=== PATIENT | female | born 1955 | race Caucasian/White ===

== ENCOUNTER 2019-10-01 18:54 | Emergency (ER) | payer MEDICARE, BC ==
[2019-10-01] MEDS ORDERED: Cephalexin 500 MG Cap PO ONE (18:55)
[2019-10-01] MEDS ORDERED: Meclizine 12.5 MG Tab PO ONE ×2 (18:55→19:34)
--- NOTE | 2019-10-01 19:39 | EDM.PDOC ---
ED HPI GENERAL MEDICAL PROBLEM - General Chief Complaint: General Stated Complaint: Dizziness Time Seen by Provider: 10/01/19 19:20 Source of Information: Reports: Patient History Limitations: Reports: No Limitations - History of Present Illness INITIAL COMMENTS - FREE TEXT/NARRATIVE: Patient to the emergency department complaining of severe dizziness with nausea and vomiting. The patient advises that she did have some dizziness last night and that resolved on its own and then it came back today and is much more worse. The patient denies any change in vision, she denies any ear, nose, throat symptoms she denies any sinus pain or pressure she denies any unusual neck, back pain or stiffness she denies any chest pain pressure heaviness she denies any palpitations irregular heartbeat she denies any calf pain redness or swelling she denies any abdominal pain has had nausea vomiting no diarrhea she has had no constipation she denies any fever chills she denies any sick contacts and no recent travel Onset: Gradual (Symptoms off and on since yesterday) Duration: Day(s): (2 days) Location: Reports: Head Quality: Reports: Other (Dizziness) Severity: Moderate Improves with: Reports: None Worsens with: Reports: Other (Unsure exactly what exacerbates the symptoms she denies any ataxia) Associated Symptoms: Reports: Nausea/Vomiting. Denies: Confusion, Chest Pain, Cough, Fever/Chills, Headaches, Seizure, Shortness of Breath, Syncope, Weakness Treatments GAUGER CHIEF: Reports: Other (see below) (none) - Related Data Allergies Allergy/AdvReac Type Severity Reaction Status Date / Time niacin Allergy Rash Verified 10/01/19 19:09 Home Meds: Home Meds Cyclobenzaprine HCl 10 mg DAILY 10/01/19 [History] Meclizine [Antivert] 25 mg PO TID 10 Days #30 tab 10/01/19 [Rx] Pravastatin Sodium [Pravastatin (Pravachol)] 40 mg DAILY 10/01/19 [History] cephALEXin [Keflex] 500 mg PO Q8H 10 Days #30 cap 10/01/19 [Rx] Past Medical History Cardiovascular History: Reports: High Cholesterol Social & Family History - Tobacco Use Smoking Status *Q: Never Smoker Second Hand Smoke Exposure: No ED ROS GENERAL - Review of Systems Review Of Systems: See Below Constitutional: Reports: No Symptoms. Denies: Fever, Chills, Weakness HEENT: Reports: No Symptoms. Denies: Ear Pain, Nose Pain, Throat Pain Respiratory: Reports: No Symptoms. Denies: Shortness of Breath, Cough Cardiovascular: Reports: No Symptoms. Denies: Chest Pain, Claudication, Edema, Palpitations, Syncope Endocrine: Reports: No Symptoms GI/Abdominal: Reports: Nausea, Vomiting. Denies: Abdominal Pain, Diarrhea : Reports: No Symptoms Musculoskeletal: Reports: No Symptoms. Denies: Neck Pain, Back Pain Skin: Reports: No Symptoms. Denies: Bruising, Rash, Erythema Neurological: Reports: Dizziness. Denies: Confusion, Headache, Seizure, Syncope , Trouble Speaking, Difficulty Walking, Weakness, Change in Speech, Gait Disturbance Psychiatric: Reports: No Symptoms ED EXAM, GENERAL - Physical Exam Exam: See Below Exam Limited By: No Limitations General Appearance: Alert, WD/WN, No Apparent Distress Eye Exam: Bilateral Eye: EOMI Ears: Normal External Exam, Normal Canal, Hearing Grossly Normal, Normal TMs Ear Exam: Bilateral Ear: TM normal Nose: Normal Inspection, Normal Mucosa. No: Nasal Tenderness, Nasal Drainage Throat/Mouth: Normal Inspection, Normal Lips, Normal Oropharynx, Normal Voice, No Airway Compromise Head: Atraumatic, Normocephalic Neck: Normal Inspection, Supple, Non-Tender, Full Range of Motion Respiratory/Chest: No Respiratory Distress, Lungs Clear, Normal Breath Sounds, Chest Non-Tender Cardiovascular: Normal Peripheral Pulses, Regular Rate, Rhythm, No Edema, No Murmur Peripheral Pulses: 2+: Radial (L), Radial (R), Posterior Tibial (L), Posterior Tibial (R) GI/Abdominal: Soft, Non-Tender Back Exam: Normal Inspection, Full Range of Motion Extremities: Normal Inspection, Normal Range of Motion, Non-Tender, No Pedal Edema, Normal Capillary Refill. No: Mar's Sign Neurological: Alert, Oriented, CN II-XII Intact, Normal Cognition, Normal Gait, No Motor/Sensory Deficits, Other (No palmar drift, normal [id number], EOMI, the nurse advised her gait was steady) Psychiatric: Normal Affect, Normal Mood Skin Exam: Warm, Dry, Intact, Normal Color EKG INTERPRETATION EKG Date: 10/01/19 Time: 20:08 Rhythm: NSR [place]: Normal P-Wave: Present QRS: Normal ST-T: Other (Nonspecific changes) QT: Normal EKG Interpretation Comments: Twelve-lead EKG shows an underlying sinus rhythm with a ventricular rate of 70 there is some nonspecific ST changes however there does not appear to be any acute injury or ischemia noted at this point. Course - Vital Signs Text/Narrative:: 2053 the patient has been evaluated in the emergency department CBC, general chemistries, troponin, magnesium are all essentially negative urinalysis does show urinary tract infection, see all the labs for complete details. Twelve- lead EKG shows an underlying sinus rhythm with some nonspecific ST changes. The patient was given Antivert [address] x[address] dose. CT the brain is still pending radiology reading. Once the CT reading is complete a disposition will be made 2118 CT brain read as neg for acute pathology, see report for details, pt did have good results with antivert, will be dc with antivert and will be started on keflex for her UTI, will increase fluids and f/u with pcp this week Last Recorded V/S: Last Vital Signs Temp 36.1 C 10/01/19 19:27 Pulse 88 10/01/19 19:27 Resp 20 10/01/19 19:27 BP 151/96 H 10/01/19 19:27 Pulse Ox 100 10/01/19 19:27 - Orders/Labs/Meds Orders: Active Orders 24 hr Category Date Time Status Head wo Cont [CT] Stat Exams 10/01/19 19:33 Taken CULTURE URINE [RM] Stat Lab 10/01/19 19:45 Received EKG 12 Lead [EK] Stat Ther 10/01/19 19:35 Ordered Labs: Laboratory Tests 10/01/19 10/01/19 10/01/19 Range/Units 19:45 19:55 19:55 WBC 7.8 (5.0-10.0) 10^3/uL RBC 4.93 (4.00-5.50) 10^6/uL Hgb 14.3 (12.0-16.0) g/dL Hct 43.4 (37.0-47.0) % MCV 88.0 (82.0-94.0) fL MCH 29.0 (27.0-32.0) pg MCHC 32.9 L (33.0-38.0) g/dL RDW Coeff of Malina 13.4 (11.0-15.0) % Plt Count 235 (150-400) 10^3/uL Neut % (Auto) 83.6 (35-85) % Lymph % (Auto) 11.3 (10-55) % [place] % (Auto) 4.7 (0-16) % Eos % (Auto) 0.1 (0-5) % Baso % (Auto) 0.3 (0-3) % Neut # (Auto) 6.51 (1.80-7.00) 10^3/uL Lymph # (Auto) 0.88 L (1.00-4.80) 10^3/uL [place] # (Auto) 0.37 (0.00-0.80) 10^3/uL Eos # (Auto) 0.01 (0.00-0.45) 10^3/uL Baso # (Auto) 0.02 10^3/uL Sodium 142 (136-145) mEq/L Potassium 4.7 (3.5-5.0) mEq/L Chloride 102 (98-106) mEq/L Carbon Dioxide 30 (21-32) mmol/L BUN 20 H (7-18) mg/dL Creatinine 0.9 (0.6-1.0) mg/dL Est Cr Clr Drug Dosing 47.03 mL/min Estimated GFR (MDRD) > 60 (>=60) mL/min Glucose 123 H (75-99) mg/dL Calcium 9.4 (8.4-10.1) mg/dL Magnesium 2.1 (1.8-2.4) mg/dL Total Bilirubin 0.3 (0.0-1.0) mg/dL AST 21 (15-37) U/L ALT 30 (12-78) U/L Alkaline Phosphatase 69 (46-116) U/L Troponin I < 0.017 (0.00-0.06) ng/mL Total Protein 7.9 (6.4-8.2) g/dL Albumin 3.9 (3.4-5.0) g/dL Urine Color Yellow (YELLOW) Urine Appearance Slightly cloudy (CLEAR) Urine pH 5.5 (4.5-8.0) Ur Specific [place] >= 1.030 H (1.003-1.020) Urine Protein 30 H (NEGATIVE) mg/dL Urine Glucose (UA) Negative (NEGATIVE) mg/dL Urine Ketones 40 H (NEGATIVE) mg/dL Urine Occult Blood Negative (NEGATIVE) Urine Nitrite Positive H (NEGATIVE) Urine Bilirubin Negative (NEGATIVE) Urine Urobilinogen 0.2 (0.2-1.0) EU/dL Ur Leukocyte Esterase Trace H (NEGATIVE) Urine RBC 0-5 (0-5) /HPF Urine WBC 30-40 H (0-5) /HPF Ur Squamous Epith Cells Few H (NOT SEEN) /HPF Urine Bacteria Moderate H (NOT SEEN) /HPF Urine Mucus Few H (NOT SEEN) /HPF Meds: Medications Discontinued Medications Generic Name Dose Route Start Last Admin Trade Name Freq PRN Reason Stop Dose Admin Meclizine HCl 50 mg 10/01/19 19:34 10/01/19 19:48 Antivert PO 10/01/19 19:35 50 mg ONETIME ONE Administration Departure - Departure Time of Disposition: 21:20 Disposition: Home, Self-Care 01 Condition: Good Clinical Impression: UTI, Urinary tract infectious disease, Vertigo - Discharge Information *PRESCRIPTION DRUG MONITORING PROGRAM REVIEWED*: Not Applicable *COPY OF PRESCRIPTION DRUG MONITORING REPORT IN PATIENT PAULY: Not Applicable Prescriptions: cephALEXin [Keflex] 500 mg PO Q8H 10 Days #30 cap Meclizine [Antivert] 25 mg PO TID 10 Days #30 tab Forms: ED Department Discharge Additional Instructions: increase fluids change position slowly follow up with your family doctor this week, call thursday for a follow up appointment for your dizziness and follow up with a repeat urine in 10 - 14 days return to the ER sooner if worse or problems Sepsis Event Note - Evaluation Sepsis Screening Result: No Definite Risk - Focused Exam Vital Signs: Vital Signs Temp Pulse Resp BP Pulse Ox 10/01/19 19:27 36.1 C 88 20 151/96 H 100 Date Exam was Performed: 10/01/19 Time Exam was Performed: 21:19 - Problem List & Annotations (1) UTI, Urinary tract infectious disease SNOMED Code(s): 02228722 Code(s): N39.0 - URINARY TRACT INFECTION, SITE NOT SPECIFIED Status: Acute Priority: Medium (2) Vertigo SNOMED Code(s): 492684806 Code(s): R42 - DIZZINESS AND GIDDINESS Status: Acute Priority: Medium - Problem List Review Problem List Initiated/Reviewed/Updated: Yes - My Orders Last 24 Hours: My Active Orders 10/01/19 19:33 Head wo Cont [CT] Stat 10/01/19 19:35 EKG 12 Lead [EK] Stat 10/01/19 19:45 CULTURE URINE [RM] Stat - Assessment/Plan Admission H&P: Please use this note as an admission H&P Last 24 Hours: My Active Orders 10/01/19 19:33 Head wo Cont [CT] Stat 10/01/19 19:35 EKG 12 Lead [EK] Stat 10/01/19 19:45 CULTURE URINE [RM] Stat Plan: see above for details the pts PMHx, PSHX, PFMHX and social hx reviewed, see nurses notes for details
[2019-10-01 20:18] LABS: CHLORIDE,CL 102 mEq/L (98-106); SODIUM,NA 142 mEq/L (136-145)
[2019-10-01] MEDS ORDERED: Take Home: Meclizine 12.5 MG Tab, 4 Tab Pack PO ONE (21:25)
[2019-10-01] MEDS ORDERED: Take Home: Cephalexin 500 MG Cap, 4 Cap Pack PO ONE (21:26)
== END 2019-10-01 21:45 | disposition home or self-care (01) ==
LOC: CC.ED 18:54
DX: N39.0 Urinary tract infection, site not specified (principal); R42 Dizziness and giddiness; Z91.09 Other allergy status, other than to drugs and biological substances; E78.00 Pure hypercholesterolemia, unspecified; Z79.899 Other long term (current) drug therapy
CPT/HCPCS: 36415; 70450; 80053; 81001; 83735; 84484; 85025; 87086; 87088; 87186; 93005; 99284; A9270; 99283